=== PATIENT | male | born 1970 | race Caucasian/White ===

== ENCOUNTER 2025-03-16 11:29 | Emergency (ER) | payer SELFPAY ==
[~2025-03-16] VITALS: Ht 188 cm; Wt 78.3 kg
[2025-03-16 12:01] VITALS: BP 116/69; PULSE 87; RESP 16; TEMP 97.6; O2SAT 100
--- NOTE | 2025-03-16 12:32 | RADIOLOGY REPORT ---
DI CHEST,TWO VIEWS INDICATION: PAIN ON LEFT BACK/RIBS TECHNIQUE: Two views of the chest COMPARISON: None FINDINGS/IMPRESSION: LUNGS: No pleural effusion, consolidation, or pneumothorax. MEDIASTINUM: Unremarkable. BONES: No acute osseous abnormality. OTHER: None.
--- NOTE | 2025-03-16 12:33 | RADIOLOGY REPORT ---
EXAM: DI HIP UNILATERAL 2-3 VIEWS INDICATION: RIGHT HIP PAIN TECHNIQUE: 3 views of the right hip COMPARISON: None FINDINGS/IMPRESSION: No radiographic evidence of an acute osseous abnormality. Severe end-stage osteoarthrosis of the right hip with significant osseous remodeling and flattening of the right femoral head/neck. Superimposed component of the avascular necrosis not excluded.
--- NOTE | 2025-03-16 13:05 | Physician Documentation ---
History of Present Illness ~ General Chief Complaint: Multiple Medical Complaints Stated Complaint: FALL RIB PAIN Time Seen by MD: 12:08 OK to notify your PCP?: Yes Primary Medical Doctor: None Source: patient Mode of Arrival: POV Exam Limitations: no limitations History of Present Illness Initial Comments Having left lateral rib pain which radiates into his back as well as right hip pain. He does not use a walking stick to help with ambulation due to his chronic arthritis in his right hip. He reports that he has been taking Tylenol and ibuprofen without any relief. Last dose of was prior to arrival Medication Reconciliation Allergies: Coded Allergies: No Known Allergies (Unverified , 03/16/25) Review of Systems All Other Systems at this time: Reviewed and Negative Physical Exam Physical Exam Vital Signs: RN Vital Signs have been reviewed: Yes, Temperature: 97.6, Source: Temporal, Heart Rate: 87, Respiratory Rate: 16, BP: 116/69, Pulse Oximetry: 100, Weight: 78.300 Oxygen Flow Rate: 0 Pulse Oximetry Reflects: adequate oxygenation Physical Exam General: Alert, no distress. HEENT: No injection, moist mucous membranes. Neck: Full range of motion. Respiratory: No respiratory distress, equal chest rise and fall. Lungs clear bilaterally Chest: No accessory muscle use. Cardiovascular: Regular rate and rhythm. Gastrointestinal: Nondistended. Extremities: Ambulatory, decreased range motion of right hip. Back: Tenderness to palpation of left lateral lower rib. No CVA tenderness. No contusion or swelling noted. Neurologic: Oriented x4. Psychiatric: Normal mood and affect. Skin: Normal color, warm and dry. Progress Results/Orders Reviewed/noted all lab results: Yes Results/Orders Medications Received in ER Medications (Trade) Dose Ordered Sig/Senait Route PRN Reason Start Time Stop Time Status Last Admin Dose Admin (Tylenol tablet) 650 mg ONCE ONCE PO 03/16/25 13:00 03/16/25 13:01 DC 03/16/25 13:12 650 MG Vital Signs 03/16/25 12:01 Temp 97.6 Pulse 87 Resp 16 B/P (MAP) 116/69 Pulse Ox 100 O2 Flow Rate 0 EKG/XRAY/CT/US/VASC/MRI Chest X-Ray : Additional Comments Chest x-ray: as interpreted by me; no large effusion, no large infiltrate, normal mediastinum, no acute rib fracture. Bone/Soft Tissue X-Ray (Ext.) : Additional Comment Right hip x-ray as interpreted by me; no joint effusion, no acute fracture, no dislocation, or foreign body. Severe osteoarthritis noted. Medical Decision Making Additional information obtaine: old records Findings Right hip X ray and chest x-ray negative for acute fractures. There is severe osteoarthritis noted to the right hip and avascular necrosis can not be fully ruled out. Since he had ibuprofen prior to arrival, I gave him Tylenol while in the department. Physical exam is unremarkable except for some tenderness to palpation of left lower rib and right hip. Differential Diagnosis Fracture, dislocation, avascular necrosis, pulmonary embolism, pleural effusion, [place]. Departure Disposition: HOME / SELF CARE / HOMELESS Impression: Primary Impression: Rib contusion Additional Impressions: Right hip pain Osteoarthritis of right hip Condition: Stable Discharge Instructions: Arthritis, [id number], Rib Contusion Additional Instructions: Was no fracture of your right hip or left ribs. Please remember to take 10 deep breaths an hour to prevent getting and atelectasis or pneumonia. Continue using Tylenol and/or ibuprofen for pain relief. Return back here for any new or worsening symptoms, follow up with her primary care provider in the next week. Referrals: NO PRIMARY CARE PROVIDER (PCP) Education Educated: Patient Educated regarding: diagnosis, treatment, prognosis, need for follow up Additional Comment Medical Screen Exam This patient recieved a medical screening examination. After reviewing the individual's medical complaints with presenting symptoms and performing an appropriate physical examination, it was determined that no immediate life- threatening emergency medical condition is present. This individual is also not a women having contractions. I have reviewed this case [id number] with the PA, including physical examination, laboratory and imaging results as appropriate. The patient was evaluated [id number] and I agree with the PA's notes. I agree with the findings, evaluation and disposition. Signature Scribe Signature: . Attestation: Scribed for Bambi Toney [employer] Supervisor by Bambi Ng NP . 03/16/25 13:00 Parts of this note were created using [employer] voice recognition software program. While efforts were made to correct any mistakes made by this voice recognition software program, nonsensical phrases may remain in this note. In addition, there may be errors and syntax, grammar, content and spelling. BAMBI TONEY Mar 16, 2025 13:05 ZEB SANCHEZ MD Mar 16, 2025 18:32
== END 2025-03-16 13:14 | disposition home or self-care (01) ==
LOC: ER 11:29
DX: S20.211A Contusion of right front wall of thorax, initial encounter (principal); M25.551 Pain in right hip; M16.11 Unilateral primary osteoarthritis, right hip; X58.XXXA Exposure to other specified factors, initial encounter; Y93.89 Activity, other specified; Y92.89 Other specified places as the place of occurrence of the external cause; Y99.8 Other external cause status
CPT/HCPCS: 71046; 73502; 99284